=== PATIENT | male | born 1960 | race Caucasian/White ===

== ENCOUNTER 2017-09-16 10:50 | Day surgery (SDC) | payer BC ==
[2017-09-11 23:26] VITALS: BMI 25.7
[~2017-09-16 10:50] MED LIST: ALPRAZolam 0.25 MG TAB PO PRN; ASPIRIN 325 MG TAB PO ONE; NITROGLYCERIN SL TABS 0.4 MG TAB SUBLINGUAL PRN; SODIUM CHLORIDE 0.9% 1,000 ML in EMPTY BAG 1 BAG IV ONE
[2017-09-16 11:11] VITALS: TEMP 98.1
[2017-09-16 11:23] LABS: Basophils % (A) 1 %; Eosinophils # (A) 0.3 k/uL (0-0.7); Eosinophils % (A) 4 %; HCT 45.8 % (39.0-53.0); HGB 15.5 gm/dL (13.0-17.5); Lymphocytes # (A) 1.9 k/uL (1.0-4.8); Lymphocytes % (A) 26 %; MCH 32.2 pg (25.0-35.0); MCHC 33.8 g/dL (31.0-37.0); MCV 95.3 fL (80.0-100.0); Mean Platelet Volume 6.7; Monocytes # (A) 0.5 k/uL (0-1.0); Monocytes % (A) 6 %; Neutrophils # (A) 4.4 k/uL (1.3-7.7); Neutrophils % (A) 61 %; Platelet Count 208 k/uL (150-450); RBC 4.81 m/uL (4.30-5.90); RDW 13.2 % (11.5-15.5); WBC 7.3 k/uL (3.8-10.6)
[2017-09-16 11:35] LABS: Anion Gap 10 mmol/L; Blood Urea Nitrogen 17 mg/dL (9-20); Calcium 9.7 mg/dL (8.4-10.2); Carbon Dioxide 22 mmol/L (22-30); Chloride 109 mmol/L (98-107); Glucose 95 mg/dL (74-99); Potassium 4.2 mmol/L (3.5-5.1); Sodium 141 mmol/L (137-145)
[2017-09-16] MEDS ORDERED: LIDOCAINE 2% INJ 20 MG/ML (20 ML MDV) ONE (11:41)
[2017-09-16] MEDS ORDERED: HEPARIN SODIUM 1,000 UN/ML (10ML VL) ONE (11:41)
[2017-09-16] MEDS ORDERED: VERAPAMIL 2.5 MG/ML 2 ML AMP ONE (11:41)
[2017-09-16] MEDS ORDERED: MIDAZOLAM 2 MG/2 ML VIAL ONE (12:09)
[2017-09-16] MEDS ORDERED: diphenhydrAMINE 50 MG/ML 1 ML VIAL ONE (12:09)
[2017-09-16] MEDS ORDERED: diphenhydrAMINE 50 MG/ML 1 ML VIAL IVP ONE (12:34)
[2017-09-16] MEDS: MIDAZOLAM 2 MG/2 ML VIAL IV ONE ×2 (12:36→12:41)
[2017-09-16] MEDS ORDERED: LIDOCAINE 2% INJ 20 MG/ML SQ ONE (13:09)
[2017-09-16] MEDS ORDERED: VERAPAMIL SYRINGE (5 MG/10 ML) INTRAARTER ONE (13:10)
[2017-09-16] MEDS: VERAPAMIL SYRINGE (5 MG/10 ML) INTRAARTER ONE ×2 (13:14→13:23)
[2017-09-16] MEDS ORDERED: IOHEXOL 350 MG/ML 125ML BOTTLE INJ ONE (13:28)
[2017-09-16] MEDS ORDERED: RX INFO: IV CONTRAST WAS GIVEN 1 EACH MISC MISCELLANE PRN (13:33)
[2017-09-16] MEDS ORDERED: SODIUM CHLORIDE 0.9% 1,000 ML IV SCH (13:45)
--- NOTE | 2017-09-16 15:01 | CC ---
CARDIAC CATHETERIZATION REPORT DATE OF SERVICE: September 16, 2017 PERFORMING PHYSICIAN: Jorge Cuellar MD, exhibition carver. PROCEDURE PERFORMED: 1. Selective right and left coronary angiogram. 2. Left heart catheterization. INDICATION: This is a pleasant 57-year-old gentleman who was experiencing left arm discomfort who does also have history of smoking and significant family history of coronary artery disease who underwent a myocardial perfusion imaging stress test and that revealed inferior ischemia. In view of that, a heart catheterization was recommended. APPROACH: Right right radial artery. COMPLICATION: None. LEVEL OF SEDATION: Moderate with sedation length of 61 minutes. PROCEDURE DESCRIPTION: After obtaining informed consent, the patient was brought to cardiac micro lab analyst. The right radial artery was cannulated using micropuncture technique, the micropuncture wire passed easily then I placed a 6-Spanish sheath in the right radial artery. After that I gave the patient 2 mg of verapamil IA and 10,000 units of heparin IV. After that, I did selective right and left coronary angiogram using JR4 and JL3.5 catheters. The left heart catheterization was performed using the JR4 catheter which crossed the aortic valve. Then I did pullback after that. The procedure was completed without any complication. SELECTIVE CORONARY ANGIOGRAM: 1. The RCA is a large caliber vessel and it is a dominant vessel. The proximal RCA has mild disease only. The mid RCA has a plaque in the range of 50%. The RCA distally has mild disease only and bifurcates into PDA and PLV branches both are angiographically normal. 2. The left main is angiographically normal. It bifurcates into the left circumflex and left anterior descending artery. 3. The left circumflex is a large caliber vessel. It is a nondominant vessel. The proximal circ is angiographically normal. The mid circ has mild disease only and the circ distally has mild disease only as well. The circ gives rise into a large OM branch in the midportion and that branch has mild disease only. 4. The left anterior descending artery: The proximal LAD appeared to be angiographically normal. The mid LAD is normal as well and gives rise into the first and second diagonal branches both are angiographically normal. The LAD distally has mild disease only. HEMODYNAMICS: The left ventricular end-diastolic pressure was 8 mmHg and no gradient was identified across the aortic valve. 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 POSTPROCEDURE MANAGEMENT: Maximize medical treatment and follow up with the patient. MMODL / IJN: [id number] /
--- NOTE | 2017-09-16 15:07 | LTR ---
DATE OF SERVICE: September 16, 2017. Dear Dr. Camargo: Mr. Doroteo Villa underwent a heart catheterization and that revealed intermediate disease involving the mid RCA appeared to be in the range of 50% to 60%. The disease is not severe enough to undergo percutaneous coronary stenting. We will treat him medically at this point with aspirin and high-intensity statin and follow up with him. I want to thank you for allowing me to participate in his care and please do not hesitate to call if you have any questions or concerns. Sincerely, MMODL / IJN: [id number] /
[2017-09-16 17:38] VITALS: BP 123/71; PULSE 76; RESP 18
== END 2017-09-16 18:15 | disposition home or self-care (01) ==
LOC: CATHCVL 10:50
PROVIDERS: ATTEND Internal Medicine Interventional Cardiology
DX: I25.110 Atherosclerotic heart disease of native coronary artery with unstable angina pectoris (principal); R94.39 Abnormal result of other cardiovascular function study; I45.10 Unspecified right bundle-branch block; F17.210 Nicotine dependence, cigarettes, uncomplicated; Z82.49 Family history of ischemic heart disease and other diseases of the circulatory system; Z79.82 Long term (current) use of aspirin; Z79.899 Other long term (current) drug therapy
CPT/HCPCS: 93458; 80048; 85025; C1894; J2001; J2250; J1200; J1644; Q9967

== ENCOUNTER → 2018-08-09 | Outpatient (CLI) | payer BC ==
[2018-08-09 16:49] LABS: LDL Cholesterol,Calculated 88.8 mg/dL (0.0-131.0); VLDL Calculation 15.2 mg/dL (5.00-40.00)
== END | disposition home or self-care (01) ==
LOC: LABWHC1 08:15
PROVIDERS: ATTEND Internal Medicine Interventional Cardiology
DX: E78.2 Mixed hyperlipidemia (principal)
CPT/HCPCS: 36415; 80061; 84450; 84460